=== PATIENT | male | born 1950 | race Caucasian/White ===

== ENCOUNTER 2017-12-21 08:06 | Day surgery (SDC) | payer OTHER ==
[2017-12-21] MEDS ORDERED: MIDAZOLAM 2 MG/2 ML VIAL ONE (11:25)
[2017-12-21] MEDS ORDERED: KETOROLAC 30 MG/ML VIAL ONE (11:25)
[2017-12-21] MEDS ORDERED: fentaNYL 0.05 MG/ML VIAL ONE (11:25)
[2017-12-21] MEDS ORDERED: LIDOCAINE 2% 100 MG/5 ML UJET TP ONE (11:25)
== END 2017-12-21 13:20 | disposition home or self-care (01) ==
LOC: MDS 08:06 → MMU 08:15 → MDS 13:20
PROVIDERS: ATTEND Internal Medicine Gastroenterology
DX: K51.40 Inflammatory polyps of colon without complications (principal); I10 Essential (primary) hypertension; E78.5 Hyperlipidemia, unspecified; E66.9 Obesity, unspecified; M19.90 Unspecified osteoarthritis, unspecified site; Z79.899 Other long term (current) drug therapy
CPT/HCPCS: 45385; 88305; J1885; J2250; J3010